=== PATIENT | male | born 1985 | race American Indian/Alaskan Native ===

== ENCOUNTER 2017-02-06 20:26 | Emergency (ER) | payer OTHER ==
[2017-02-06 21:21] VITALS: BP 129/78
--- NOTE | 2017-02-06 22:32 | Emergency Department Report ---
Minor Respiratory - HPI Chief Complaint: Upper Respiratory Infection Stated Complaint: THROAT SWOLLEN/COUGH/CONGESTION Time Seen by Provider: 02/06/17 22:15 Duration: 2 weeks Pain Location: Throat Severity: moderate Minor Respiratory: Yes Sore Throat, Yes Able to Tolerate Fluids, Yes Cough, Yes Sick Contacts, Yes Fever, No Rhinorrhea, No Ear Pain, No Hemoptysis, No Chest Pain, No Shortness of Breath Other History: This is a 31 y.o. male presents with sore thoat, congestion, and cough for 2 weeks. He is taking able to tolerate liquids and food but it is very painful to swallow. Pain is 8/10 on pain scale. He is taking OTC cold and flu medicine withe minimal relief. Denies chest pain, SOB, wheezing, abdominal pain, nausea and vomiting. ED Review of Systems ROS: Stated complaint: THROAT SWOLLEN/COUGH/CONGESTION Other details as noted in HPI Constitutional: no symptoms reported, see HPI, fever. denies: chills, diaphoresis, malaise, weakness ENT: as per HPI, throat pain, congestion. denies: ear pain, dental pain, hearing loss, epistaxis Respiratory: no symptoms reported, see HPI, cough. denies: orthopnea, shortness of breath, SOB with exertion, SOB at rest, stridor, wheezing Cardiovascular: as per HPI. denies: chest pain, palpitations, dyspnea on exertion, orthopnea, edema, syncope, paroxysmal nocturnal dyspnea Gastrointestinal: as per HPI. denies: abdominal pain, nausea, vomiting, diarrhea, constipation, hematemesis, melena, hematochezia Neurological: as per HPI. denies: headache, weakness, numbness, paresthesias, confusion, abnormal gait, vertigo Psychiatric: as per HPI. denies: anxiety, depression, auditory hallucinations, visual hallucinations, homicidal thoughts, suicidal thoughts ED Past Medical Hx - Past Medical History Previous Medical History?: Yes Hx Asthma: Yes - Surgical History Past Surgical History?: Yes Additional Surgical History: tonselectomy epispadis - Social History Smoking Status: Never Smoker Substance Use Type: Alcohol - Medications Home Medications: Home Medications Medication Instructions Recorded Confirmed Last Taken Type Azithromycin [Zithromax Z-NINFA] 250 mg PO DAILY 5 Days #6 tablet 02/06/17 Unknown Rx Cetirizine HCl [Allergy] 10 mg PO DAILY 30 Days #30 tablet 02/06/17 Unknown Rx Fluticasone [Flonase] 1 spray NS QDAY #1 bottle 02/06/17 Unknown Rx Prednisone [predniSONE 5 mg (6-Day 5 mg PO .TAPER #1 tab.ds.pk 02/06/17 Unknown Rx Pack, 21 Tabs)] Minor Respiratory Exam - Exam General: Vital signs noted. No distress. Alert and acting appropriately. HEENT: Yes Pharyngeal Erythema, Yes Moist Mucous Membranes, Yes Rhinorrhea ( clear discharge), No Pharyngeal Exudates, No Conjuctival Injection, No Frontal Tenderness, No Maxillary Tenderness Ear: Neither TM Bulge, Neither TM Erythema, Neither EAC Pain, Neither EAC Discharge Neck: Yes Supple, No Adenopathy Lungs: Yes Good Air Exchange, Yes Cough, No Wheezes, No Ronchi, No Stridor, No Labored Respirations, No Retractions, No Use of Accessory Muscles, No Other Abnormal Lung Sounds Heart: Yes Regular, No Murmur Abdomen: Yes Normal Bowel Sounds, No Tenderness, No Peritoneal Signs Skin: No Rash, No Edema Neurologic: Alert and oriented, no deficits. Musculoskeletal: Unremarkable. ED Course Vital Signs 02/06/17 21:16 Temperature 99.2 F Pulse Rate 93 H Respiratory 20 Rate Blood Pressure 129/78 O2 Sat by Pulse 98 Oximetry Critical care attestation.: If time is entered above; I have spent that time in minutes in the direct care of this critically ill patient, excluding procedure time. ED Disposition Clinical Impression: URI (upper respiratory infection) Qualifiers: URI type: acute laryngopharyngitis Qualified Code(s): J06.0 - Acute laryngopharyngitis Rhinitis Qualifiers: Rhinitis type: vasomotor Chronicity: acute Qualified Code(s): J30.0 - Vasomotor rhinitis Disposition: DC-01 TO HOME OR SELFCARE Is pt being admited?: No Does the pt Need Aspirin: No Condition: Stable Instructions: Upper Respiratory Infection (ED), Allergic Rhinitis (ED), Pharyngitis (ED) Additional Instructions: Use throat lozenges and salt water gargles for symptom relief. Complete prescriptions as ordered. F/U with primary care provider or ER if unable to swallow, drooling, pain with swallowing, chest pain, or fever. Prescriptions: Azithromycin [Zithromax Z-NINFA] 250 mg PO DAILY 5 Days #6 tablet Cetirizine HCl [Allergy] 10 mg PO DAILY 30 Days #30 tablet Fluticasone [Flonase] 1 spray NS QDAY #1 bottle Prednisone [predniSONE 5 mg (6-Day Pack, 21 Tabs)] 5 mg PO .TAPER #1 tab.ds.pk Referrals: MANISHA MOORE MD [Primary Care Provider] - 3-5 Days [facility] [Outside] - 3-5 Days [facility] [Outside] - 3-5 Days Time of Disposition: 22:58 Print Language: UKRAINIAN
== END 2017-02-06 23:07 | disposition home or self-care (01) ==
LOC: ED 20:26
DX: J06.9 Acute upper respiratory infection, unspecified (principal); J30.0 Vasomotor rhinitis; J45.909 Unspecified asthma, uncomplicated; Z98.890 Other specified postprocedural states
CPT/HCPCS: 87116; 87400; 87430; 99282